=== PATIENT | female | born 1955 | race African-American/Black ===

== ENCOUNTER 2017-09-09 09:39 | Emergency (ER) | payer MEDICAID ==
[~2017-09-09] VITALS: Ht 154.9 cm; Wt 99.8 kg
[2017-09-09] MEDS ORDERED: SODIUM CHLORIDE 0.9% 1,000 ML IV ONE (10:13)
[2017-09-09] MEDS ORDERED: DIAZEPAM 5 MG/ML 2ML SYRG IV ONE (10:15)
[2017-09-09] MEDS ORDERED: MECLIZINE HCL 25 MG TAB PO ONE (10:15)
[2017-09-09] MEDS ORDERED: FUROSEMIDE 20 MG/2 ML VIAL IV ONE (10:15)
[2017-09-09 10:28] LABS: Urine Bilirubin Negative (Negative); Urine Blood Negative /uL (Negative); Urine Color Yellow (Yellow); Urine Glucose 3+ mg/dL (Normal); Urine Ketone Negative (Negative); Urine Nitrite Negative (Negative); Urine RBC 1 /hpf (0 - 4); Urine Squamous Epithelial Cell FEW /hpf (<5); Urine Urobilinogen Normal (Negative); Urine pH 7.5 (5.0-8.0)
[2017-09-09 11:07] LABS: Basophils # (auto) 0.1 uL; Eosinophils # (auto) 0.4 uL; Eosinophils % (auto) 7.6 % (0.0-7.0); Hematocrit 37.3 % (36.0-46.0); Hemoglobin 12.8 g/dL (12.2-16.2); Lymphocytes # (auto) 1.9 uL; Lymphocytes % (auto) 36.7 % (10.0-50.0); Mean Corpuscular Hemoglobin 31.1 pg (28.0-32.0); Mean Corpuscular Hgb Conc. 34.2 g/dL (32.0-36.0); Mean Corpuscular Volume 90.9 fL (80.0-100.0); Mean Platelet Volume 8.1 fL (6.9-10.8); Monocytes # (auto) 0.3 uL; Monocytes % (auto) 5.8 % (0.0-12.0); Neutrophils # (auto) 2.6 uL; Neutrophils % (auto) 48.9 % (37.0-80.0); Nucleated Red Blood Cells % 0.1 %; Platelet Count (auto) 223 10^3/uL (140-450); Red Cell Distribution Width 13.6 % (11.8-14.3); White Blood Cell 5.2 10^3/uL (4.4-10.8)
[2017-09-09 11:28] LABS: Albumin 3.7 g/dL (3.4-5.0); BUN/Creatinine Ratio 22.4; Bilirubin, Total 0.6 mg/dL (0.2-1.0); Calcium 8.9 mg/dL (8.5-10.1); Magnesium 2.1 mg/dL (1.6-2.6); Potassium 3.5 mmol/L (3.5-5.1); Total Protein 8.2 g/dL (6.4-8.2)
[2017-09-09] MEDS ORDERED: LORazepam 2MG/ML-1ML VIAL IV ONE ×2 (11:30→12:30)
[2017-09-09 11:32] LABS: B-Type Natriuretic Peptide 37.36 pg/mL (0-100)
[2017-09-09 11:39] LABS: Temperature: 22.1 C (20.0-25.0)
[2017-09-09 16:00] VITALS: BP 131/72
== END 2017-09-09 16:45 | disposition home or self-care (01) ==
LOC: ER 09:39 → EDBD 09:39 → EDUNIT# 09:39 → ER 16:45
DX: H83.09 Labyrinthitis, unspecified ear (principal); R53.1 Weakness; E11.9 Type 2 diabetes mellitus without complications; K21.9 Gastro-esophageal reflux disease without esophagitis; I10 Essential (primary) hypertension; E78.5 Hyperlipidemia, unspecified; F32.9 Major depressive disorder, single episode, unspecified; M19.90 Unspecified osteoarthritis, unspecified site; Z90.710 Acquired absence of both cervix and uterus
CPT/HCPCS: 36415; 71020; 80053; 81001; 83735; 83880; 85025; 93005; 94761; 96361; 96374; 96375; 96376; 99285; J1940; J2060; J7030; J8597

== ENCOUNTER 2019-08-18 10:02 | Emergency (ER) | payer MEDICAID ==
[~2019-08-18] VITALS: Ht 154.9 cm; Wt 99.8 kg
[2019-08-18 10:10] VITALS: BP 169/97
== END 2019-08-18 11:44 | disposition home or self-care (01) ==
LOC: ER 10:02
DX: S90.32XA Contusion of left foot, initial encounter (principal); E11.9 Type 2 diabetes mellitus without complications; K21.9 Gastro-esophageal reflux disease without esophagitis; E78.5 Hyperlipidemia, unspecified; I10 Essential (primary) hypertension; Z90.710 Acquired absence of both cervix and uterus; Z88.6 Allergy status to analgesic agent; Z86.39 Personal history of other endocrine, nutritional and metabolic disease; W20.8XXA Other cause of strike by thrown, projected or falling object, initial encounter; Y93.89 Activity, other specified; Y92.89 Other specified places as the place of occurrence of the external cause; Y99.8 Other external cause status
CPT/HCPCS: 73630

== ENCOUNTER 2020-09-07 17:33 | Emergency (ER) | payer MEDICAID ==
[~2020-09-07] VITALS: Ht 152.4 cm; Wt 104.3 kg
[2020-09-07] MEDS ORDERED: ASPirin 81 mg TAB PO ONE (19:00)
[2020-09-07 19:23] LABS: Basophils # (auto) 0 10 ^3/uL (0-0.2); Basophils % (auto) 0.6 % (0.0-2.0); Eosinophils # (auto) 0.6 10 ^3/uL (0-0.8); Eosinophils % (auto) 8.8 % (0.0-7.0); Hematocrit 38.7 % (36.0-46.0); Hemoglobin 12.9 g/dL (12.2-16.2); Lymphocytes % (auto) 42.4 % (10.0-50.0); Mean Corpuscular Hemoglobin 30.7 pg (28.0-32.0); Mean Corpuscular Hgb Conc. 33.3 g/dL (32.0-36.0); Mean Corpuscular Volume 92.4 fL (80.0-100.0); Monocytes # (auto) 0.5 10 ^3/uL (0-1.3); Monocytes % (auto) 7.6 % (0.0-12.0); Neutrophils # (auto) 2.9 10 ^3/uL (1.6-8.6); Neutrophils % (auto) 40.6 % (37.0-80.0); Nucleated Red Blood Cells % 0.2 %; Platelet Count (auto) 274 10^3/uL (140-450); Red Blood Cells 4.19 10^6/uL (4.0-5.20); Red Cell Distribution Width 13.9 % (11.8-14.3); White Blood Cell 7.1 10^3/uL (4.4-10.8)
[2020-09-07 19:42] LABS: Albumin 3.6 g/dL (3.4-5.0); Anion Gap 3 (5-15); Blood Urea Nitrogen 7 mg/dL (7-18); Calcium 8.9 mg/dL (8.5-10.1); Carbon Dioxide 31 mmol/L (21-32); Chloride 105 mmol/L (98-107); Magnesium 2.2 mg/dL (1.6-2.6); Potassium 3.2 mmol/L (3.5-5.1); Sodium 139 mmol/L (136-145)
[2020-09-07 19:45] LABS: INR 0.94 (0.9-1.15); Partial Thromboplastin Time 24.4 sec (23.0-31.2)
[2020-09-07 19:50] LABS: Alanine Aminotransferase 19 U/L (13-56); Alkaline Phosphatase 97 U/L (45-117); Aspartate Aminotransferase 9 U/L (15-37); BUN/Creatinine Ratio 8.2; Bilirubin, Total 0.4 mg/dL (0.2-1.0); GFR African American 87 mL/min; GFR Non-African American 72 mL/min; Glucose 156 mg/dL (74-106); Total Protein 7.9 g/dL (6.4-8.2)
[2020-09-07 21:45] LABS: Alcohol, Urine < 3.0 mg/dL (0-10); Amphetamine Screen, Urine NEGATIVE (NEGATIVE); Barbiturate Scree,Urine NEGATIVE (NEGATIVE); Benzodiazephine Screen, Urine NEGATIVE (NEGATIVE); Cannabinoid Screen, Urine NEGATIVE (NEGATIVE); Cocaine Screen, Urine NEGATIVE (NEGATIVE); Opiate Scree,Urine NEGATIVE (NEGATIVE); Phencyclidine Screen, Urine NEGATIVE (NEGATIVE)
[2020-09-07 22:06] LABS: Urine Bacteria FEW /hpf (None Seen); Urine Blood Negative /uL (Negative); Urine Hyaline Cast FEW /lpf (0 - 2); Urine Specific Gravity 1.007 (1.001-1.035); Urine WBC 2 /hpf (0 - 5)
[2020-09-07] MEDS ORDERED: POTASSIUM CHL 20 Meq TABLET PO ONE (22:30)
[2020-09-08] MEDS ORDERED: ACETAMINOPHEN 325 MG TAB PO ONE
[2020-09-08 03:15] VITALS: BP 160/96
== END 2020-09-08 03:30 | disposition home or self-care (01) ==
LOC: ER 17:33 → EDBD 17:33 → ER 09-08 03:30
DX: R07.89 Other chest pain (principal); E87.6 Hypokalemia; E11.9 Type 2 diabetes mellitus without complications; K21.9 Gastro-esophageal reflux disease without esophagitis; E78.5 Hyperlipidemia, unspecified; Z90.710 Acquired absence of both cervix and uterus; Z88.6 Allergy status to analgesic agent
CPT/HCPCS: 36415; 71045; 80053; 80307; 81001; 83735; 83880; 84443; 84484; 85025; 85610; 85730; 93005

== ENCOUNTER → 2020-11-15 | Outpatient (CLI) | payer MEDICAID | END | disposition home or self-care (01) | LOC: Rad HDHVI 13:37 | PROVIDERS: ATTEND Internal Medicine Cardiovascular Disease | DX: I08.3 Combined rheumatic disorders of mitral, aortic and tricuspid valves (principal); I10 Essential (primary) hypertension; R07.9 Chest pain, unspecified | CPT/HCPCS: 93306 ==

== ENCOUNTER → 2020-11-19 | Outpatient (CLI) | payer MEDICAID ==
[~2020-11-19] VITALS: Ht 154.9 cm; Wt 103.4 kg
== END | disposition home or self-care (01) ==
LOC: Rad HDHVI 08:34
PROVIDERS: ATTEND Internal Medicine
DX: I10 Essential (primary) hypertension (principal); E78.00 Pure hypercholesterolemia, unspecified; E11.9 Type 2 diabetes mellitus without complications; R07.89 Other chest pain; R06.02 Shortness of breath; Z82.49 Family history of ischemic heart disease and other diseases of the circulatory system
CPT/HCPCS: 78452; 93017; 96374; A9500

== ENCOUNTER 2023-11-14 10:35 | Emergency (ER) | payer OTHER, MEDICAID ==
[~2023-11-14] VITALS: Ht 154.9 cm; Wt 93.3 kg
[~2023-11-14 10:35] MED LIST: HYDR12.55 PO; METF-370 PO
[2023-11-14] MEDS: KETOROLAC TROMETH 60MG/2ML VIAL IM ONE (14:35)
[2023-11-14] MEDS ORDERED: DICL1GEL59 EX (14:46)
[2023-11-14] MEDS ORDERED: NAP500T PO (14:46)
[2023-11-14] MEDS: ONDANSETRON ODT 4 MG TAB PO ONE (14:51)
[2023-11-14 15:17] VITALS: BP 107/55; PULSE 84; RESP 16; TEMP 98.1; O2SAT 97
== END 2023-11-14 15:23 | disposition home or self-care (01) ==
LOC: ER 10:35
DX: S86.911A Strain of unspecified muscle(s) and tendon(s) at lower leg level, right leg, initial encounter (principal); E11.9 Type 2 diabetes mellitus without complications; K21.9 Gastro-esophageal reflux disease without esophagitis; E78.5 Hyperlipidemia, unspecified; I10 Essential (primary) hypertension; E03.9 Hypothyroidism, unspecified; Z90.710 Acquired absence of both cervix and uterus; Z79.899 Other long term (current) drug therapy; Z88.5 Allergy status to narcotic agent; Z88.8 Allergy status to other drugs, medicaments and biological substances; X58.XXXA Exposure to other specified factors, initial encounter; Y93.89 Activity, other specified; Y92.89 Other specified places as the place of occurrence of the external cause; Y99.8 Other external cause status
CPT/HCPCS: 36415; 73562; 84550; 93971; 96372; 99285; J1885; Q0162